=== PATIENT | female | born 1965 ===

== ENCOUNTER 2017-11-30 20:11 | Emergency (ER) | payer BC ==
[2017-11-30 20:20] VITALS: TEMP 98; O2SAT 100
[2017-11-30] MEDS ORDERED: Dextrose 50% SYRINGE Inj (50 ml) ONE (20:21)
[2017-11-30] MEDS ORDERED: Dextrose 50% SYRINGE Inj (50 ml) IVP ONE ×2 (20:28→20:29)
[2017-11-30 20:39] LABS: BASO # 0.1 K/uL (0.0-0.2); BASO % 0.8 % (0.0-2.0); EOS # 0.5 K/uL (0.0-0.7); EOS % 4.5 % (0.0-4.0); HEMOGLOBIN 12.4 g/dL (12.0-16.0); LYMPH # 1.6 K/uL (1.0-4.3); MEAN CELL VOLUME 88.4 fl (81.0-99.0); MEAN CORPUSCULAR HEMOGLOBIN 29.4 pg (27.0-31.0); MEAN CORPUSCULAR HGB CONC 33.2 g/dL (33.0-37.0); MEAN PLATELET VOLUME 8.4 fl (7.2-11.7); MONO # 0.5 K/uL (0.0-0.8); MONO % 4.7 % (0.0-10.0); NEUT # 7.9 K/uL (1.8-7.0); RBC 4.22 Mil/uL (3.80-5.20); WHITE BLOOD COUNT 10.5 K/uL (4.8-10.8)
[2017-11-30 20:47] LABS: PARTIAL THROMBOPLASTIN TIME 30.3 Seconds (25.6-37.1)
[2017-11-30 20:53] LABS: ALB/GLOB RATIO 1.1 (1.0-2.1); ALBUMIN 4.4 g/dL (3.5-5.0); ALT/SGPT 96 U/L (9-52); AST/SGOT 82 U/L (14-36); BLOOD UREA NITROGEN 27 mg/dl (7-17); CALCIUM 9.5 mg/dL (8.4-10.2); GFR AFRICAN-AMERICAN > 60; GFR NON-AFRICAN AMERICAN 52
[2017-11-30 21:18] LABS: SQUAMOUS EPITHIAL 2 /hpf (0-5); URINE BACTERIA RARE (<OCC); URINE BILIRUBIN NEGATIVE (NEGATIVE); URINE BLOOD NEGATIVE (NEGATIVE); URINE CLARITY CLEAR (Clear); URINE COLOR YELLOW (YELLOW); URINE GLUCOSE (UA) >=500 mg/dL (Normal); URINE LEUKOCYTE ESTERASE NEG Leu/uL (Negative); URINE PROTEIN NEGATIVE (NEGATIVE); URINE UROBILINOGEN 0.2-1.0 mg/dL (0.2-1.0)
--- NOTE | 2017-11-30 22:09 | ED PDOC ---
Syncope/Near Syncope/Dizziness Time Seen by Provider: 11/30/17 20:28 Chief Complaint (Nursing): Weakness/Neurological Deficit Chief Complaint (Provider): Weakness/Neurological Deficit History Per: Patient History/Exam Limitations: no limitations Onset/Duration Of Symptoms: Days Current Symptoms Are (Timing): Still Present Additional Complaint(s): 52 year old female with a past medical history of diabetes and HTN, presents to the ED complaining of intermittent weakness and numbness to arms and mouth since yesterday. Patient reports of taking multiple oral hypoglycemic medications since diagnosis in September. PMD: None Provided Past Medical History Reviewed: Historical Data, Nursing Documentation, Vital Signs Vital Signs: Last Vital Signs Temp 98.0 F 11/30/17 20:17 Pulse 67 11/30/17 20:17 Resp 16 11/30/17 20:17 BP 137/73 11/30/17 20:17 Pulse Ox 100 11/30/17 20:17 - Medical History PMH: Diabetes, HTN - Surgical History Surgical History: Appendectomy, Cholecystectomy - Family History Family History: States: Unknown Family Hx - Immunization History Hx Tetanus Toxoid Vaccination: No Hx Influenza Vaccination: No Hx Pneumococcal Vaccination: No - Home Medications Home Medications: Ambulatory Orders Medication Instructions Recorded Alogliptin Benzoate [Alogliptin] 25 mg PO DAILY 11/30/17 Carvedilol [Coreg] 12.5 mg PO BID 11/30/17 Fenofibrate Nanocrystallized 145 mg PO DAILY 11/30/17 [Fenofibrate] Glimepiride 2 mg PO DAILY 11/30/17 Lisinopril/Hydrochlorothiazide 1 tab PO DAILY 11/30/17 [Lisinopril-Hydrochlorothiazide 25 mg-20 mg] MetFORMIN [glucOPHAGE] 1,000 mg PO BID 11/30/17 - Allergies Allergies/Adverse Reactions: Allergies Allergy/AdvReac Type Severity Reaction Status Date / Time No Known Allergies Allergy Unverified 02/26/13 12:52 Review of Systems ROS Statement: Except As Marked, All Systems Reviewed And Found Negative Neurological: Positive for: Weakness (to arms), Numbness (to arms and legs) Physical Exam - Reviewed Nursing Documentation Reviewed: Yes Vital Signs Reviewed: Yes - Physical Exam Appears: Positive for: Well, Non-toxic, No Acute Distress Head Exam: Positive for: ATRAUMATIC, NORMOCEPHALIC Skin: Positive for: Normal Color, Warm, Dry Eye Exam: Positive for: EOMI, Normal appearance, PERRL ENT: Positive for: Normal ENT Inspection Neck: Positive for: Normal, Painless ROM, Supple Cardiovascular/Chest: Positive for: Regular Rate, Rhythm. Negative for: Murmur Respiratory: Positive for: Normal Breath Sounds. Negative for: Respiratory Distress Gastrointestinal/Abdominal: Positive for: Normal Exam, Soft. Negative for: Tenderness Back: Positive for: Normal Inspection. Negative for: L CVA Tenderness, R CVA Tenderness, Vertebral Tenderness Extremity: Positive for: Normal ROM. Negative for: Pedal Edema, Deformity Neurologic/Psych: Positive for: Alert, Oriented (x3). Negative for: Motor/ Sensory Deficits - Laboratory Results Result Diagrams: 11/30/17 20:34 11/30/17 20:34 - ECG O2 Sat by Pulse Oximetry: 100 (RA) Pulse Ox Interpretation: Normal - Critical Care Total Time (In Min): 30 Documented Critical Care: Time excludes all time spent performint seperately billable procedures Medical Decision Making Medical Decision Making: Time: 2042 Impression: 52 year old female with arm numbness and weakness, in setting known diabetes and hypoglycemia. Plan: -- CT Head w/o contrast -- EKG -- CMP -- Troponin I -- ED Urine Dipstick -- CBC with differentials -- PTT -- Prothrombin Time -- Glucose, POC Routine -- Heplock Insertion -- Accucheck -- Glucose, Blood, POC -- Urinalysis -- Today, code stroke was announced by nursing staff prior to observation with provider. Code stroke then canceled by provider. Patient will be further evaluated. -- Upon provider's observation, patient was alert, oriented x3. Patient had then received 1 amp of D50. -- As per the nursing staff, speech was slurred prior. Patient no presents with no neurological deficits. Time: 1:00 CT Head w/o contrast: FINDINGS: BRAIN: Unremarkable. No hemorrhage. No significant white matter disease. No edema. VENTRICLES: Unremarkable. No ventriculomegaly. BONES/JOINTS: Unremarkable. No acute fracture. SOFT TISSUES: Unremarkable. SINUSES: Unremarkable as visualized. No acute sinusitis. MASTOID AIR CELLS: Unremarkable as visualized. No mastoid effusion. IMPRESSION: No acute findings -- Patient's blood sugars have been normal since original presentation. Patient was initially amenable to admission but she has to attend her son's graduation today so she declines admission. Patient has an existing appointment at [address] [facility] and states she will follow up as scheduled. She was given return precautions and expresses understanding. Diagnosis: Hypoglycemic condition improved. Scribe Attestation: Documented by Jeramie De Leon, acting as a scribe for Dr. Alejandro Zelaya MD. Provider Scribe Attestation: All medical record entries made by the Scribe were at my direction and personally dictated by me. I have reviewed the chart and agree that the record accurately reflects my personal performance of the history, physical exam, medical decision making, and the department course for this patient. I have also personally directed, reviewed, and agree with the discharge instructions and disposition. Disposition - Clinical Impression Clinical Impression: Hypoglycemia - Disposition Disposition Time: 01:00 Condition: IMPROVED
[2017-12-01 00:11] VITALS: RESP 18
[2017-12-01 00:13] VITALS: BP 97/50; PULSE 61
--- NOTE | 2017-12-01 08:59 | CT ---
PROCEDURE: CT HEAD WITHOUT CONTRAST. HISTORY: numbness COMPARISON: None available. TECHNIQUE: Axial computed tomography images were obtained through the head/brain without intravenous contrast. Radiation dose: Total exam DLP = 745.1 mGy-cm. This CT exam was performed using one or more of the following dose reduction techniques: Automated exposure control, adjustment of the mA and/or kV according to patient size, and/or use of iterative reconstruction technique. FINDINGS: HEMORRHAGE: No intracranial hemorrhage. BRAIN: No mass effect or edema. No atrophy or chronic microvascular ischemic changes. VENTRICLES: Unremarkable. No hydrocephalus. CALVARIUM: Unremarkable. PARANASAL SINUSES: Unremarkable as visualized. No significant inflammatory changes. MASTOID AIR CELLS: Unremarkable as visualized. No inflammatory changes. OTHER FINDINGS: None. IMPRESSION: No acute intracranial pathology.
--- NOTE | 2017-12-01 09:11 | CARD ---
APPROVED REPORT EKG Measurement Heart [id number] CT 126P-29 [id number] <Conclusion> Normal sinus rhythm Right superior axis deviation Nonspecific T wave abnormality Abnormal ECG
== END 2017-12-01 01:27 | disposition home or self-care (01) ==
LOC: H.ER 20:11 → UNDOADMOB 12-01 00:17 → H.ERHOLD 12-01 00:17
DX: E16.2 Hypoglycemia, unspecified (principal); E11.9 Type 2 diabetes mellitus without complications; I10 Essential (primary) hypertension